=== PATIENT | female | born 1935 | race Caucasian/White ===

== ENCOUNTER → 2018-04-15 12:59 | Outpatient (CLI) | payer MEDICARE ==
[2014-01-30 09:13] VITALS: BMI 30.5
[~2018-04-15 12:59] MED LIST: ASPIRIN325 MG PO; ATENOLOL25 MG NG; ATIVAN1 MG; CATAPRES0.1 MG PO; FEVERFEW; NIFEDIPINE ER60 MG PO; PLAVIX75 MG PO; PREDNISONE5 MG/5 ML PO; [UNRECOGNIZED DRUG - OTHER] PO
== END | disposition home or self-care (01) ==
LOC: D.RAD 12:59
DX: R05 Cough (principal)

== ENCOUNTER 2018-10-10 17:03 | Inpatient (IN) | payer MEDICARE ==
[~2018-10-10] VITALS: Ht 154.9 cm; Wt 69.4 kg
--- NOTE | ~2018-10-10 | HEMODYNAMI ---
PATIENT:KASSIE MARKHAM MEDICAL RECORD: [id number] : 33 [id number] ADMISSION DATE: 10/10/18 Generatedon:10/11/201811:56 Patient name: KASSIE MARKHAM Patient #: [id number] SSN: : Date of study: 10/11/2018 Page: Of Hemodynamic Procedure Report Patient Data Patient Demographics Procedure consent was obtained First Name: KASSIE Gender: Female Last Name: RASHI : 1935 [facility] Initial: MIKHAIL Age: 83 year(s) LIANG Race: Unknown Patient #: [id number] Additional ID: [id number] Contact details Address: [address] [place] [address] State: [place] City: [place] Zip code: [address] Admission Admission Data Admission Date: 10/10/2018 Admission Time: 20:27 Room #: D.2107 Weight (lbs.): 154.32 Weight (kg.): 70 Lab Results Lab Result Date: 10/11/2018 Lab Result Time: 0:00 Biochemistry Name Units Result Min Max BUN mg/dl 27 --(----)-* 7 18 Creatinine mg/dl 1 --(--*-)-- 0.6 1.3 CBC Name Units Result Min Max Hemoglobin g/dl 11.9 *-(----)-- 13.5 17.5 Procedure Procedure Types Cath Procedure Diagnostic Procedure LHC LHC w/Coronaries PCI Procedure Coronary Stent Coronary Stent Initial Peripheral Cath Diagnostic Procedure Customer Servicer Peripheral Procedures Renal Arteriogram Procedure Description Procedure Date Procedure Date: 10/11/2018 Procedure Start Time: 11:27 Procedure End Time: 11:51 Procedure Staff Name Function Gera Mayfield MD Performing Physician Darryl Crook RT Audio Visual Secretary Olivia Miles RN Nurse Barbara Llanes RT Scrub Alex Cheng RT Monitor Procedure Data Cath Procedure Fluoroscopy Diagnostic fluoroscopy Total fluoroscopy Time: 7.3 time: 7.3 min min Diagnostic fluoroscopy Total fluoroscopy dose: 304 dose: 304 mGy mGy Contrast Material Contrast Material Type Amount (ml) Isovue 300 117 Entry Location Entry Primary Successful Side Size Upsize Upsize Entry Closure Succes sful Closure Location (Fr) 1 (Fr) 2 (Fr) Remarks Device Remarks Femoral Right 5 Fr 6 Fr Exoseal artery Short Estimated blood loss: 10 ml Diagnostic catheters Device Type Used For End Catheter Placement MULTIPACK JL 4.0 5Fr Procedure catheter MULTIPACK 3DRC 5Fr Procedure catheter MULTIPACK Pigtail 5 Fr Procedure catheter Procedure Complications No complications Procedure Medications Medication Administration Route Dosage 0.9% NaCl I.V. 100 ml/hr Oxygen etCO2 Nasal cannula 2 l/min Lidocaine 2% added to field 20 Heparin Flush Bag added to field 2 bags (1000units/500ml NS) Versed I.V. 2 mg Fentanyl I.V. 50 mcg Versed I.V. 2 mg Fentanyl I.V. 50 mcg Heparin Bolus I.V. 7000 units Versed I.V. 2 mg Plavix P.O. 75 mg Hemodynamics Rest HGB: 11.9 (g/dl) Heart Rate: 70 (bpm) Pressure Samples Time Site Value (mmHg) Purpose Heart Use Rate(bpm) 11:29 AO 170/65(107) Snapshot 67 11:31 AO 168/66(108) Snapshot 68 11:35 LV 163/-5,14 Snapshot 67 11:35 AO 170/61(105) Pullback 68 11:35 LV 177/-8,21 Pullback 68 11:39 AO 150/52(90) Snapshot 63 11:42 AO 154/60(98) Snapshot 68 11:44 AO 149/57(97) Snapshot 67 Gradients Valve Time Site 1 Site 2 Mean SEP/DFP Peak To Heart Use (mmHg) (sec/min) Peak Rate (mmHg) (bpm) Aortic 11:35 LV AO 12 13 7 68 177/-8,21 170/61(105) Calculations Valve P-P Mean Valve Index Valve Source Name Gradient Area Flow (cm2) Aortic 7 12 7 12 Snapshots Pre Cath Intra NCS Post Cath Vital Signs Time Heart Resp SPO2 etCO2 NIBP (mmHg) Rhythm Pain Sedation Rate (ipm) (%) (mmHg) Status Level (bpm) 11:11:26 74 21 98 30.3 184/92(138) NSR 0 (11) 10(A) , No pain 11:15:36 72 14 99 31.1 175/84(135) NSR 0 (11) 10(A) , No pain 11:19:48 72 13 98 31.1 173/87(131) NSR 0 (11) 10(A) , No pain 11:23:58 70 12 98 30.3 174/88(133) NSR 0 (11) 10(A) , No pain 11:28:08 74 14 97 35.6 169/90(136) NSR 0 (11) 10(A) , No pain 11:32:22 67 14 97 35.6 154/75(122) NSR 0 (11) 9(A) , No pain 11:36:40 71 11 97 34.9 151/70(118) NSR 0 (11) 10(A) , No pain 11:40:54 64 12 97 34.8 153/75(122) NSR 0 (11) 9(A) , No pain 11:45:08 70 12 97 34.1 148/73(113) NSR 0 (11) 9(A) , No pain 11:49:24 65 11 97 37.1 136/69(108) NSR 0 (11) 10(A) , No pain Medications Time Medication Route Dose Verified Delivered Reason Notes Effectiveness by by 11:12:09 0.9% NaCl I.V. 100 Gera Olivia used for ml/hr Chaparro Miles director content marketing 11:12:17 Oxygen etCO2 2 Gera Olivia used for Nasal l/min Chaparro Miles procedure cannula RN 11:12:22 Lidocaine 2% added 20ml Gera Gera for local to vial Chaparro Mayfield MD anesthetic field 11:12:27 Heparin Flush added 2 Gera Gera used for Bag to bags Chaparro Mayfield MD procedure (1000units/500ml field NS) 11:26:43 Versed I.V. 2 mg Gera Olivia for sedation Chaparro Miles RN 11:26:51 Fentanyl I.V. 50 Gera Olivia for sedation mcg Chaparro Miles RN 11:31:11 Versed I.V. 2 mg Gera Olivia for sedation Chaparro Miles RN 11:31:21 Fentanyl I.V. 50 Gera Olivia for sedation mcg Chaparro Miles RN 11:36:58 Versed I.V. 2 mg Gera Olivia for sedation Chaparro Miles RN 11:39:46 Heparin Bolus I.V. 7000 Gera Olivia for verif ied units Chaparro Miles anticoagulation with DrGareth Mayfield 11:51:26 Plavix P.O. 75 mg Gera Olivia for Chaparro Miles antiplatelet RN therapy Procedure Log Time Note 10:50:14 Darryl Crook RT(R) sent for patient. Start room use. 10:56:15 Time tracking: Regular hours (M-F 7:00 - 5:00) 10:56:19 Plan of Care:Hemodynamics will remain stable., Cardiac rhythm will remain stable., Comfort level will be maintained., Respiratory function will remain adequate., Patient/ family verbilizes understanding of procedure., Procedure tolerated without complication., Recovers from procedure without complications.. 11:02:02 Patient received from Med II to [facility] 3 Alert and oriented. Tansferred to table in Supine position. 11:02:03 Warm blankets applied, and henrik hugger turned on for patient comfort. 11:02:04 Correct patient and procedure confirmed by team. 11:02:06 Signed procedure consent form obtained from patient. 11:02:06 ECG and BP/O2 sat monitors applied to patient. 11:10:30 Vital chart was started 11:12:09 0.9% NaCl 100 ml/hr I.V. was administered by Olivia Miles RN; used for procedure; 11:12:17 Oxygen 2 l/min etCO2 Nasal cannula was administered by Olivia Miles RN; used for procedure; 11:12:22 Lidocaine 2% 20ml vial added to field was administered by Gera Mayfield MD; for local anesthetic; 11:12:27 Heparin Flush Bag (1000units/500ml NS) 2 bags added to field was administered by Gera Mayfield MD; used for procedure; 11:17:29 Baseline sample Acquired. 11:17:32 Rhythm: sinus rhythm 11:17:34 Full Disclosure recording started 11:17:41 H&P Date Dictated: 10/10/2018 Within 30 days and on chart.. 11:17:42 Pre-procedure instructions explained to patient. 11:17:42 Pre-op teaching completed and patient verbalized understanding. 11:17:44 Patient NPO since Midnight. 11:17:48 Family in patients room. 11:17:49 Is the patient allergic to Iodine/contrast media? No. 11:17:54 Is patient on blood thinner?Yes 11:18:04 ACC The patient was administered the following blood thiners within the last 24 hours: ACCPlavix 11:18:06 Patient diabetic? No. 11:18:09 Previous problem with sedation/anesthesia? No ? 11:25:00 Snore? Yes 11:25:03 Sleep apnea? No 11:25:04 Deviated septum? No 11:25:05 Opens mouth fully? Yes 11:25:06 Sticks out tongue? Yes 11:25:08 Airway obstruction? No ? 11:25:10 Dentures? No ? 11:25:12 Pre procedure: right dorsailis pedis pulse 1+ Palpable, but thready & weak; easily obliterated 11:25:30 Unable to palpate radial artery. 11:25:34 Patient pain scale 0/10 ?. 11:25:38 IV patent on arrival in left forearm with 0.9% NaCl at [facility]. 11:25:39 Lab results completed and on chart. 11:25:42 Right groin area was prepped with chlora-prep and draped in sterile fashion 11:25:43 Alarms reviewed by R. N. 11:25:44 Sharps counted by scrub and verified by R.N. 11:25:45 --------ALL STOP TIME OUT------ 11:25:45 Final Timeout: patient, procedure, and site verified with staff and physician. All members of the team are in agreement. 11:25:48 Right groin site verified by team. 11:25:52 Fire Safety Assessment: A--An alcohol-based skin anteseptic being used preoperatively., C--Open oxygen or nitrous oxide is being used., D--An ESU, laser, or fiber-optic light is being used. 11:25:55 Physical assessment completed. ASA score P 2 - A patient with mild systemic disease as per Gera Mayfield MD. 11:25:58 Sedation plan: IV Moderate Sedation Medication:Versed, Fentanyl 11::43 Versed 2 mg I.V. was administered by Olivia Miles RN; for sedation; 11:26:51 Fentanyl 50 mcg I.V. was administered by Olivia Miles RN; for sedation; 11:27:32 Use device set Femoral Dx 11:27:34 ACIST Manifold (60364) opened to sterile field. 11:27:35 ACIST Hand Control (81236) opened to sterile field. 11:27:36 Tegaderm 4 x 4 (1626W) opened to sterile field. 11:27:37 ACIST Syringe (64238) opened to sterile field. 11:27:37 Bag Decanter (2002S) opened to sterile field. 11:27:38 Medline Cath Pack ([id number]) opened to sterile field. 11:27:38 DIAGNOSTIC WIRE .035 260cm J wire (538923) opened to sterile field. 11:27:39 DIAGNOSTIC Multipack 5Fr catheter set (AP9120) opened to sterile field. 11:27:40 SHEATH 5FR [place] (QDR440) opened to sterile field. 11:27:44 Procedure started. 11:27:47 Local anesthetic to right femoral artery with Lidocaine 2% by Gera Mayfield MD.INITIAL ACCESS ONLY 11:28:45 A 5 Fr sheath was inserted into the Right Femoral artery 11:28:50 A MULTIPACK JL 4.0 5Fr catheter was advanced over the wire and used for Procedure. 11:29:23 LCA angiography performed. 11:30:17 Catheter exchanged over wire. 11:30:24 A MULTIPACK 3DRC 5Fr catheter was advanced over the wire and used for Procedure. 11:31:11 Versed 2 mg I.V. was administered by Olivia Miles RN; for sedation; 11:31:21 Fentanyl 50 mcg I.V. was administered by Olivia Miles RN; for sedation; 11:31:36 RCA angiography performed. 11:33:15 Left renal angiography performed. 11:33:40 Right renal angiography performed. 11:33:44 Catheter exchanged over wire. 11:34:02 Procedure type changed to Cath procedure, Diagnostic procedure, LHC, LHC w/Coronaries, PCI procedure, Coronary Stent, Coronary Stent Initial, Peripheral Cath Diagnostic Procedure, Customer Servicer Peripheral Procedures, Renal Arteriogram 11:34:15 Patient Weight : 154.32 lbs 11:34:41 Lab Result : BUN 27 mg/dl 11:34:41 Lab Result : Hemoglobin 11.9 g/dl 11:34:41 Lab Result : Creatinine 1 mg/dl 11:34:50 A MULTIPACK Pigtail 5 Fr catheter was advanced over the wire and used for Procedure. 11:35:17 LV angiography performed. 11:35:19 LV gram done using CHRISTY 11:35:34 EF : 45 % 11:35:49 LV hemodynamics recorded. 11:35:54 Injector settings: Ml/sec: 10, Volume: 20, 11:35:56 Catheter exchanged over wire. 11:36:25 Use device set MAYFIELD PCI 11:36:26 SHEATH 6FR [place] (YLH067) opened to sterile field. 11:36:30 BMW 300cm [place] 2 J wire ([id number]) opened to sterile field. 11:36:31 INFLATOR Merit BasixCompak (XF8957) opened to sterile field. 11:36:32 TUBING High Pressure Extension Tubing ([place]) (RZ5283N) opened to sterile field. 11:36:58 Versed 2 mg I.V. was administered by Olivia Miles RN; for sedation; 11:39:05 GUIDE 6FR XBLAD 3.5 catheter ([id number]) opened to sterile field. 11:39:17 Sheath upsized to a 6 Fr Short. 11:39:36 6 Fr XBLAD 3.5 guide catheter was inserted over the wire 11:39:46 Heparin Bolus 7000 units I.V. was administered by Olivia Miles RN; for anticoagulation; verified with Dr. Mayfield 11:40:01 BMW wire advanced. 11:40:46 Wire advanced across lesion. 11:44:52 Inflate balloon Inflation number: 1 A EMERGE OTW 2.0 x 15 balloon ([id number]) was prepped and advanced across the Mid CX, then inflated to 10 MICHAEL for 0:10 (min:sec). 11:47:33 Balloon removed over the wire. 11:48:25 Place stent Inflation Number: 2 A DAMIAN OTW 2.5 x 12 stent ([id number]) was prepped and advanced across the Mid CX. The stent was deployed at 14 MICHAEL for 0:10 (min:sec). 11:48:45 Stent catheter was removed intact over wire. 11:48:46 Wire removed. 11:48:46 Guide catheter removed. 11:48:56 EXOSEAL 6Fr (EX600) opened to sterile field. 11:49:06 Sheath removed intact; hemostasis achieved with Exoseal to the Right Femoral artery. 11:49:08 Procedure ended.(Physican Out) 11:50:11 Fluoroscopy time 07.30 minutes. 11:50:15 Flurop Dose total: 304 11:50:15 Fluoroscopy dose: 304 mGy 11:50:20 Contrast amount:Isovue 300 117ml. 11:50:22 Sharps counted by scrub and verified by R.N. 11:50:24 Insertion/operative site no bleeding no hematoma. 11:50:26 Post-op/insertion site Right Femoral artery dressed using a 4 x 4 and Tegaderm. 11:50:27 Post Procedure Pulses reassessed and unchanged 11:50:30 Post-procedure physical assessment completed. ASA score P 2 - A patient with mild systemic disease as per Gera Mayfield MD. 11:50:32 Post procedure rhythm: unchanged. 11:50:35 Estimated blood loss: 10 ml 11:50:37 Post procedure instruction explained to patient.Patient verbalizes understanding. 11:50:38 Patient needs reinforcement of post procedure teaching. 11:50:48 Procedure and supply charges have been captured, reviewed, submitted and are correct. 11:50:51 Procedure Complication : No complications 11:51:26 Plavix 75 mg P.O. was administered by Olivia Miles RN; for antiplatelet therapy; 11:51:49 Vital chart was stopped 11:51:49 See physician's report for complete and final results. 11:51:51 Report given to [facility]. 11:51:54 Patient transfered to [facility] with Bed. 11:51:55 Procedure ended. 11:51:55 Full Disclosure recording stopped 11:55:51 End room use (Document Last) Intervention Summary Intervention Notes Time ActionType Lesion and Equipment Action# Pressure Duration Attributes Used 11:44:52 Inflate Mid CX EMERGE OTW 1 10 00:10 balloon 2.0 x 15 balloon ([id number]) 11:48:25 Place stent Mid CX DAMIAN OTW 2.5 2 14 00:10 x 12 stent ([id number]) Device Usage Item Name Manufacture Quantity Catalog Number Hospital Part Current Min imal Lot# / Charge Number Stock Stock Serial# Code ACIST Acist 1 06236 341305 997799 363184 5 Manifold Medical (34000) Systems Inc ACIST Hand Acist 1 67813 092034 530244 934054 5 Control Medical (73116) Systems Inc Tegaderm 4 x 3M 1 1626W 389552 111502 060286 5 4 (1626W) ACIST Syringe Acist 1 45739 707968 037984 802268 20 (83316) Medical Systems Inc Bag Decanter Microtek 1 2001S 099255 84631 703353 5 (2001S) Medical Inc. Medline Cath Medline 1 [id number] 535215 91393 295761 5 Pack ([id number]) DIAGNOSTIC [place] 1 194036 064032 680405 816905 30 WIRE .035 260cm J wire (680298) DIAGNOSTIC Cardinal 1 MI6171 165490 46133 880550 30 Multipack 5Fr Health catheter set (KL3288) SHEATH 5FR Terumo 1 TXI797 985462 299982 857757 5 [place] (TWX419) MULTIPACK JL Cardinal 1 975071 5 4.0 5Fr Health catheter MULTIPACK Cardinal 1 922363 5 3DRC 5Fr Health catheter MULTIPACK Cardinal 1 671968 5 Pigtail 5 Fr Health catheter SHEATH 6FR Terumo 1 EKE743 631209 541272 031027 40 [place] (UJQ442) BMW 300cm [place] 1 [id number] 084933 496096 430855 5 [place] 2 J Vascular wire (3249102X) INFLATOR Merit 1 LH8035 641422 835751 053129 15 Merit Medical BasixCompak (QR2522) TUBING High Merit 1 [id number] 737453 74398 490613 10 Pressure Medical Extension Tubing ([place]) (CY8833N) GUIDE 6FR Cardinal 1 [id number] 168008 404182 256249 10 XBLAD 3.5 Health catheter (18694369) EMERGE OTW Lander 1 [id number] 531233 977922 075646 5 [id number] 2.0 x 15 Scientific balloon ([id number]) DAMIAN OTW 2.5 Medtronic 1 [id number] 607822 68932 732253 5 [id number] x 12 stent ([id number]) EXOSEAL 6Fr Cardinal 1 EX600 438240 049390 782281 10 (EX600) Health Signature Audit [place] Stage Time Signature Unsigned Intra-Procedure 10/11/2018 Alex Cheng 11:56:08 AM RT(R) Signatures Monitor : Alex Cheng RT Signature : Date : Time : [address] [address]
--- NOTE | ~2018-10-10 | HEMODYNAMI ---
PATIENT:KASSIE MARKHAM MEDICAL RECORD: [id number] : 33 [facility] AD[facility] DATE: 10/11/18 Generatedon:10/12/201810:37 Patient name: KASSIE MARKHAM Patient #: [id number] SSN: : Date of study: 10/12/2018 Page: Of Hemodynamic Procedure Report Patient Data Patient Demographics Procedure consent was obtained First Name: KASSIE Gender: Female Last Name: RASHI : 1935 [facility] Initial: MIKHAIL Age: 83 year(s) LIANG Race: Unknown Patient #: [id number] Additional ID: [id number] Contact details [address]: [address] [place] [address] State: [place] City: [place] Zip code: [address] Admission Admission Data Admission Date: 10/11/2018 Admission Time: 14:00 Admit Source: Other Room #: D[facility] Weight (lbs.): 154.32 Weight (kg.): 70 Lab Results Lab Result Date: 10/11/2018 Lab Result Time: 0:00 Biochemistry Name Units Result Min Max BUN mg/dl 27 --(----)-* 7 18 Creatinine mg/dl 1 --(--*-)-- 0.6 1.3 CBC Name Units Result Min Max Hemoglobin g/dl 11.9 *-(----)-- 13.5 17.5 Procedure Procedure Types Cath Procedure PCI Procedure Coronary Stent Coronary Stent Initial x2 Procedure Description Procedure Date Procedure Date: 10/12/2018 Procedure Start Time: 10:14 Procedure End Time: 10:30 Procedure Staff Name Function Benitez Ambrosio MD Performing Physician Alex Cheng RT Monitor Olivia Miles RN Nurse Darryl Crook RT Scrub Procedure Data Cath Procedure Fluoroscopy Diagnostic fluoroscopy Total fluoroscopy Time: 3.7 time: 3.7 min min Diagnostic fluoroscopy Total fluoroscopy dose: 89 dose: 89 mGy mGy Contrast Material Contrast Material Type Amount (ml) Isovue 300 80 Entry Location Entry Primary Successful Side Size Upsize Upsize Entry Closure Succes sful Closure Location (Fr) 1 (Fr) 2 (Fr) Remarks Device Remarks Femoral Left 6 Fr Exoseal artery Short Estimated blood loss: 10 ml Procedure Complications No complications Procedure Medications Medication Administration Route Dosage 0.9% NaCl I.V. 100 ml/hr Oxygen etCO2 Nasal cannula 2 l/min Lidocaine 2% added to field 20 Heparin Flush Bag added to field 2 bags (1000units/500ml NS) Heparin Bolus I.V. 4000 units Versed I.V. 2 mg Fentanyl I.V. 100 mcg Versed I.V. 2 mg Fentanyl I.V. 50 mcg Versed I.V. 2 mg Fentanyl I.V. 50 mcg Hemodynamics Rest HGB: 11.9 (g/dl) Heart Rate: 95 (bpm) Snapshots Pre Cath Intra NCS Post Cath Vital Signs Time Heart Resp SPO2 etCO2 NIBP (mmHg) Rhythm Pain Sedation Rate (ipm) (%) (mmHg) Status Level (bpm) 9:48:59 97 20 98 28 185/89(125) NSR 0 (11) 10(A) , No pain 9:58:20 86 12 98 27.2 185/94(131) NSR 0 (11) 10(A) , No pain 10:02:48 88 32 99 27.9 171/88(128) NSR 0 (11) 10(A) , No pain 10:07:19 81 13 99 21.1 174/77(130) NSR 0 (11) 10(A) , No pain 10:11:43 80 13 99 27.9 170/83(122) NSR 0 (11) 10(A) , No pain 10:16:05 80 19 98 29.4 163/81(121) NSR 0 (11) 10(A) , No pain 10:20:25 83 15 98 28.7 153/79(112) NSR 0 (11) 10(A) , No pain 10:24:49 78 19 99 31.7 159/76(123) NSR 0 (11) 10(A) , No pain 10:29:48 83 32 95 21.1 Measuring NSR 0 (11) 10(A) , No pain 10:30:09 84 19 95 19.6 176/95(129) NSR 0 (11) 10(A) , No pain Medications Time Medication Route Dose Verified Delivered Reason Notes Effectiveness by by 10:02:30 0.9% NaCl I.V. 100 Benitez Olivia used for ml/hr Hebert Miles pharmacoepidemiologist 10:02:37 Oxygen etCO2 2 Benitez Olivia used for Nasal l/min Hebert Miles procedure cannula RN 10:02:41 Lidocaine 2% added 20ml Benitez Benitez for local to vial Hebert Ambrosio MD anesthetic field 10:02:46 Heparin Flush added 2 Benitez Benitez used for Bag to bags Hebert Ambrosio MD procedure (1000units/500ml field NS) 10:14:35 Versed I.V. 2 mg Benitez Olivia for sedation Hebert Miles RN 10:14:51 Fentanyl I.V. 100 Benitez Olivia for sedation mcg Hebert Miles RN 10:18:08 Heparin Bolus I.V. 4000 Benitez Olivia for verif ied units Hebert Miles anticoagulation with Dr. PERNELL Ambrosio 10:20:44 Versed I.V. 2 mg Benitez Olivia for sedation Hebert Miles RN 10:20:53 Fentanyl I.V. 50 Benitez Olivia for sedation mcg Hebert Miles RN 10:25:46 Versed I.V. 2 mg Benitez Olivia for sedation Hebert Miles RN 10:25:51 Fentanyl I.V. 50 Benitez Olivia for sedation mcg Hebert Miles dragger Log Time Note 9:39:30 Admit Source: Other 9:39:55 Patient Weight : 154.32 lbs 9:40:01 Diagnostic Cath status Urgent 9:40:04 Alex Cheng RT(R) sent for patient. Start room use. 9:40:06 Time tracking: Regular hours (M-F 7:00 - 5:00) 9:40:11 Plan of Care:Hemodynamics will remain stable., Cardiac rhythm will remain stable., Comfort level will be maintained., Respiratory function will remain adequate., Patient/ family verbilizes understanding of procedure., Procedure tolerated without complication., Recovers from procedure without complications.. 9:40:18 Patient received from CVICU to CCL 3 Alert and oriented. Tansferred to table in Supine position. 9:40:19 Warm blankets applied, and henrik hugger turned on for patient comfort. 9:40:20 Correct patient and procedure confirmed by team. 9:40:21 Signed procedure consent form obtained from patient. 9:40:22 ECG and BP/O2 sat monitors applied to patient. 9:46:13 Vital chart was started 9:46:14 Baseline sample Acquired. 9:46:18 Rhythm: sinus rhythm 9:46:19 Full Disclosure recording started 9:50:44 H&P Date Dictated: 10/11/2018 Within 30 days and on chart.. 9:50:45 Pre-procedure instructions explained to patient. 9:50:45 Pre-op teaching completed and patient verbalized understanding. 9:50:59 Family in patients room. 9:51:01 Patient NPO since Midnight. 9:51:05 Is the patient allergic to Iodine/contrast media? Yes. 9:51:12 Was the patient premedicated? Yes 9:51:13 Is patient on blood thinner?Yes 9:51:16 ACC The patient was administered the following blood thiners within the last 24 hours: ACCPlavix 9:52:00 Patient diabetic? No. 9:52:07 Previous problem with sedation/anesthesia? No ? 9:52:08 Snore? Yes 9:52:09 Sleep apnea? No 9:52:11 Deviated septum? No 9:52:11 Opens mouth fully? Yes 9:52:12 Sticks out tongue? Yes 9:52:14 Airway obstruction? No ? 9:52:22 Dentures? No ? 9:52:25 Pre procedure: left dorsailis pedis pulse 1+ Palpable, but thready & weak; easily obliterated 9:52:28 Modified Ilia's test Ulnar < 7 seconds 9:52:31 Patient pain scale 0/10 ?. 9:59:49 IV left wrist D/C'd due to infiltration. 9:59:58 IV started by Olivia Miles RN inleft forearm with a 24 gauge IV catheter with 0.9% NaCl at KVO. 10:02:30 0.9% NaCl 100 ml/hr I.V. was administered by Olivia Miles RN; used for procedure; 10:02:37 Oxygen 2 l/min etCO2 Nasal cannula was administered by Olivia Miles RN; used for procedure; 10:02:41 Lidocaine 2% 20ml vial added to field was administered by Benitez Ambrosio MD; for local anesthetic; 10:02:46 Heparin Flush Bag (1000units/500ml NS) 2 bags added to field was administered by Benitez Ambrosio MD; used for procedure; 10:05:27 Lab results completed and on chart. 10:05:34 Right Radial & Left Groin area was prepped with chlora-prep and draped in sterile fashion 10:05:36 Alarms reviewed by R. N. 10:05:37 Sharps counted by scrub and verified by R.N. 10:05:45 Use device set Radial Dx or PCI 10:05:54 ACIST Syringe (21058) opened to sterile field. 10:05:55 ACIST Hand Control (41098) opened to sterile field. 10:05:56 ACIST Manifold (22118) opened to sterile field. 10:05:56 Tegaderm 4 x 4 (1626W) opened to sterile field. 10:05:59 Medline Cath Pack ([id number]) opened to sterile field. 10:06:00 Bag Decanter (2002S) opened to sterile field. 10:06:06 IV CATHETER 24g opened to sterile field. 10:06:06 DIAGNOSTIC WIRE .035 260cm J wire (012446) opened to sterile field. 10:06:07 MBrace Wrist Support ([id number]) opened to sterile field. 10:06:15 Use device set TAUTH PCI 10:06:21 INFLATOR Merit BasixCompak (LT7070) opened to sterile field. 10:06:26 CHOICE PT Extra Support 182cm wire ([id number]) opened to sterile field. 10:11:25 SHEATH 6FR Schwertner (DOW027) opened to sterile field. 10:11:48 GUIDE 6FR XBLAD 3.5 catheter ([id number]) opened to sterile field. 10:13:24 GUIDE 6FR ART 3.5 SH catheter ([id number]) opened to sterile field. 10:13:39 Physician opted for Femoral approach. 10:13:47 --------ALL STOP TIME OUT------ 10:13:48 Final Timeout: patient, procedure, and site verified with staff and physician. All members of the team are in agreement. 10:13:52 Right groin site verified by team. 10:13:54 Physical assessment completed. ASA score P 2 - A patient with mild systemic disease as per Beintez Ambrosio MD. 10:13:58 Sedation plan: IV Moderate Sedation Medication:Versed, Fentanyl 10:14:01 Fire Safety Assessment: A--An alcohol-based skin anteseptic being used preoperatively., C--Open oxygen or nitrous oxide is being used., D--An ESU, laser, or fiber-optic light is being used. 10:14:20 Procedure started. 10:14:30 Local anesthetic to left femerol artery with Lidocaine 2% by Benitez Ambrosio MD.INITIAL ACCESS ONLY 10:14:35 Versed 2 mg I.V. was administered by Olivia Miles RN; for sedation; 10:14:51 Fentanyl 100 mcg I.V. was administered by Olivia Miles RN; for sedation; 10:16:13 A 6 Fr Short sheath was inserted into the Left Femoral artery 10:16:34 6 Fr ART 3.5 SH guide catheter was inserted over the wire 10:17:51 Guide Catheter removed. unable to cannulate vessel. 10:18:01 GUIDE 6FR HS I SH catheter ([id number]) opened to sterile field. 10:18:08 Heparin Bolus 4000 units I.V. was administered by Olivia Miles RN; for anticoagulation; verified with Dr. Ambrosio 10:18:15 6 Fr HS 1 SH guide catheter was inserted over the wire 10:18:37 CPTXS wire advanced. 10:19:12 Wire advanced across lesion. 10:19:55 Place stent Inflation Number: 1 A DAMIAN RX 3.0 x 38 stent ([id number]) was prepped and advanced across the Mid RCA. The stent was deployed at 15 MICHAEL for 0:10 (min:sec). 10:20:34 Stent catheter was removed intact over wire. 10:20:44 Versed 2 mg I.V. was administered by Olivia Miles RN; for sedation; 10:20:53 Fentanyl 50 mcg I.V. was administered by Olivia Miles RN; for sedation; 10:21:08 Place stent Inflation Number: 1 A DAMIAN RX 3.5 x 18 stent ([id number]) was prepped and advanced across the Prox RCA. The stent was deployed at 17 MICHAEL for 0:10 (min:sec). 10::42 Stent catheter was removed intact over wire. 10::43 Wire removed. 10::43 Guide catheter removed. 10:21:50 6 Fr XBLAD 3.5 guide catheter was inserted over the wire 10:23:49 CHOICE PT Extra Support J 300cm guide wire ([id number]) opened to sterile field. 10:23:57 CPTXS 300 wire advanced. 10:24:40 Wire advanced across lesion. 10::46 Versed 2 mg I.V. was administered by Olivia Miles RN; for sedation; 10::51 Fentanyl 50 mcg I.V. was administered by Olivia Miles RN; for sedation; 10::08 Place stent Inflation Number: 1 A DAMIAN RX 2.0 x 8 stent ([id number]) was prepped and advanced across the 1st Diag. The stent was deployed at 13 MICHAEL for 0:10 (min:sec). 10:26:11 Stent catheter was removed intact over wire. 10:26:12 Wire removed. 10:26:13 Guide catheter removed. 10::42 EXOSEAL 6Fr (EX600) opened to sterile field. 10:26:52 Sheath removed intact; hemostasis achieved with Exoseal to the Left Femoral artery. 10::56 Procedure ended.(Physican Out) 10:28:21 Fluoroscopy time 03.70 minutes. 10:28:26 Fluoroscopy dose: 89 mGy 10:28:26 Flurop Dose total: 89 10:28:31 Contrast amount:Isovue 300 80ml. 10:28:32 Sharps counted by scrub and verified by R.N. 10:28:35 Insertion/operative site no bleeding no hematoma. 10:28:38 Post-op/insertion site Left Femoral artery dressed using a 4 x 4 and Tegaderm. 10:28:39 Post Procedure Pulses reassessed and unchanged 10:28:41 Post-procedure physical assessment completed. ASA score P 2 - A patient with mild systemic disease as per Benitez Ambrosio MD. 10:28:44 Post procedure rhythm: unchanged. 10::46 Estimated blood loss: 10 ml 10:28:48 Post procedure instruction explained to patient.Patient verbalizes understanding. 10:28:49 Patient needs reinforcement of post procedure teaching. 10:29:07 Procedure type changed to Cath procedure, PCI procedure, Coronary Stent, Coronary Stent Initial x2 10:29:08 Procedure and supply charges have been captured, reviewed, submitted and are correct. 10:29:10 Procedure Complication : No complications 10:29:56 Vital chart was stopped 10:29:56 See physician's report for complete and final results. 10:29:58 Report given to CVICU. 10:30:01 Patient transfered to CVICU with Bed. 10:30:03 Procedure ended. 10:30:03 Full Disclosure recording stopped 10:34:54 End room use (Document Last) Intervention Summary Intervention Notes Time ActionType Lesion and Equipment Used Action# Pressure Duration Attributes 10:19:55 Place stent Mid RCA DAMIAN RX 3.0 x 1 15 00:10 38 stent ([id number]) 10:21:08 Place stent Prox RCA DAMIAN RX 3.5 x 1 17 00:10 18 stent ([id number]) 10:26:08 Place stent 1st Diag DAMIAN RX 2.0 x 1 13 00:10 8 stent ([id number]) Device Usage Item Name Manufacture Quantity Catalog Number Hospital Part Current M inimal Lot# / Charge Number Stock Stock Serial# Code ACIST Syringe Acist 1 28522 490257 137560 899729 2 0 (74106) Medical Systems Inc ACIST Hand Acist 1 81545 241224 708227 368532 5 Control Medical (59501) Systems Inc ACIST Manifold Acist 1 79969 402396 387140 193590 5 (55788) Medical Systems Inc Tegaderm 4 x 4 3M 1 1626W 464957 264852 047229 5 (1626W) Medline Cath Medline 1 [id number] 407988 41268 843111 5 Pack ([id number]) Bag Decanter Microtek 1 2001S 096266 27677 698170 5 (2001S) Medical Inc. IV CATHETER B. [place] 1 4443173-80 778508 135381 530916 [address] [place] 1 237675 747350 233487 194307 3 0 WIRE .035 260cm J wire (685639) MBrace Wrist Advanced 1 140-0250-00 423145 33994 721018 5 Support Vascular (102139689) Dynamics INFLATOR Merit Merit 1 BW2235 905175 408595 789055 1 5 BasixCompak Medical (UL2431) CHOICE PT [place] 1 [id number] 765868 080331 633709 5 Extra Support Scientific 182cm wire (6563960T0) SHEATH 6FR Terumo 1 VSF330 889917 636046 950667 4 0 Schwertner (IPQ071) GUIDE 6FR Cardinal 1 89807931 140727 490137 315414 1 0 XBLAD 3.5 Health catheter (31998075) GUIDE 6FR ART [place] 1 [id number] 150676 603816 915615 0 3.5 SH Scientific catheter (691088932) GUIDE 6FR HS I Medtronic 1 [id number] 935332 51340 133802 1 SH catheter ([id number]) DAMIAN RX 3.0 x Medtronic 1 [id number] 124531 7579868 009295 5 [id number] 38 stent ([id number]) DAMIAN RX 3.5 x Medtronic 1 [id number] 782294 9390905 656006 5 [id number] 18 stent ([id number]) CHOICE PT [place] 1 [id number] 834405 434238 371559 5 Extra Support Scientific J 300cm guide wire ([id number]) DAMIAN RX 2.0 x Medtronic 1 [id number] 934961 1980542 599032 5 [id number] 8 stent ([id number]) EXOSEAL 6Fr Cardinal 1 EX600 206785 292033 140908 1 0 (EX600) Health Signature Audit [place] Stage Time Signature Unsigned Intra-Procedure 10/12/2018 Alex Cheng 10:37:19 AM RT(R) Signatures Monitor : Alex Cheng RT Signature : Date : Time : [facility] [address] [place] [address]
[~2018-10-10 17:03] MED LIST changes: -ATIVAN1 MG; +ATIVAN1 MG PO
[2018-10-10] MEDS ORDERED: HYDROCHLOROTHIA25 MG PO (17:22)
[2018-10-10] MEDS ORDERED: COZAAR100 MG PO (17:22)
[2018-10-10] MEDS ORDERED: DILTIAZEM (17:22)
[2018-10-10 18:01] LABS: BASOPHILS 0.2 % (0-2); EOSINOPHILS 2.6 % (0-7); HEMATOCRIT 35.3 % (36.0-48.0); HEMOGLOBIN 11.9 g/dL (12-16); LYMPHOCYTES 22.6 % (15-50); MCH 30.4 pg (26.0-34.0); MCHC 33.7 g/dL (31.0-37.0); MCV 90.1 fL (80.0-100.0); MEAN PLATELET VOLUME 10.1 fL (7.4-10.4); MONOCYTES 7.7 % (2-11); NEUTROPHILS 66.9 % (40-80); PLATELET COUNT 211 10x3/uL (130-400); RBC 3.92 10x6/uL (4.00-5.40); RDW 12.3 % (11.5-14.5); WBC 4.7 10x3/uL (4.8-10.8)
[2018-10-10 18:15] LABS: ALBUMIN 3.7 g/dL (3.4-5.0); ALKALINE PHOSPHATASE 95 U/L (46-116); ALT (SGPT) 18 U/L (10-68); BILIRUBIN - TOTAL 0.32 mg/dL (0.2-1.3); CALC OSMOLALITY 290 mosm/kg (275-300); CARBON DIOXIDE 28.8 mmol/L (21.0-32.0); CHLORIDE - SERUM 105 mmol/L (98-107); CREATININE - SERUM 1.2 mg/dL (0.6-1.3); GLUCOSE 102 mg/dL (74-106); POTASSIUM - SERUM 3.4 mmol/L (3.5-5.1); PROTEIN - SERUM 7.2 g/dL (6.4-8.2); SODIUM 143 mmol/L (136-145); UREA NITROGEN 29 mg/dL (7-18); eGFR NON AFRICAN AMERICAN 45 mL/min (90-120)
[2018-10-10 18:30] LABS: CKMB 1.3 U/L (0.0-3.6); CREATINE KINASE 49 UL (21-215)
[2018-10-10 18:35] LABS: TROPONIN-I 0.086 ng/mL (0.000-0.060)
[2018-10-10 19:20] LABS: APTT 28.8 SECONDS (22.8-39.4); INR 0.99 (0.85-1.17); PROTIME 12.6 SECONDS (11.6-15.0)
--- NOTE | 2018-10-10 19:32 | NUR ---
PT LAYING IN BED RESPIRATIONS ARE EVEN AND UNLABORED. NO DISTRESS NOTED AT THIS TIME. PT FAMILY MEMBER AT BEDSIDE. VSS. PT AMBULATED TO RESTROOM INDEPENDENTLY WITHOUT ASSISTANCE. WILL CONTINUE TO MONITOR PATIENT.
[2018-10-10 20:41] VITALS: BP 169/79
--- NOTE | 2018-10-10 21:15 | NUR ---
RECEIVED FROM ER, A&O X4, IV-L.HAND-SL, [id number], BED IS LOW, SRX2, CALL LIGHT IN REACH, WILL CONTINUE PLAN OF CARE
[2018-10-10 21:41] LABS: ANION GAP 14.4 mmol/L (8-16); CARBON DIOXIDE 27.1 mmol/L (21.0-32.0); CREATININE - SERUM 1.1 mg/dL (0.6-1.3); POTASSIUM - SERUM 3.5 mmol/L (3.5-5.1)
[2018-10-10] MEDS ORDERED: NORVASC5 MG PO (23:37)
[2018-10-11] VITALS (11 sets, daily range): BP systolic 142–181; BP diastolic 57–89; Ht 154.9 cm; Wt 69.4 kg
--- NOTE | 2018-10-11 04:46 | NUR ---
ADMISSION ASSESSMENT COMPLETED. PT RESTING WITH NO DISTRESS. SEE NOTE. MONITOR AND CPOC.
[2018-10-11 06:08] LABS: BASOPHILS 0.4 % (0-2); EOSINOPHILS 4.4 % (0-7); HEMOGLOBIN 11.9 g/dL (12-16); LYMPHOCYTES 23.2 % (15-50); MCH 30.4 pg (26.0-34.0); MCV 89.3 fL (80.0-100.0); MEAN PLATELET VOLUME 10.4 fL (7.4-10.4); MONOCYTES 8.5 % (2-11); NEUTROPHILS 63.5 % (40-80); PLATELET COUNT 214 10x3/uL (130-400); RBC 3.92 10x6/uL (4.00-5.40); RDW 12.4 % (11.5-14.5); WBC 5.4 10x3/uL (4.8-10.8)
[2018-10-11 06:41] LABS: CALC OSMOLALITY 285 mosm/kg (275-300); CARBON DIOXIDE 24.2 mmol/L (21.0-32.0); CHLORIDE - SERUM 106 mmol/L (98-107); CKMB 2.1 U/L (0.0-3.6); CREATINE KINASE 50 UL (21-215); GLUCOSE 91 mg/dL (74-106); POTASSIUM - SERUM 3.8 mmol/L (3.5-5.1); SODIUM 141 mmol/L (136-145); UREA NITROGEN 27 mg/dL (7-18); eGFR NON AFRICAN AMERICAN 56 mL/min (90-120)
[2018-10-11 07:08] LABS: TROPONIN-I 0.657 ng/mL (0.000-0.060)
--- NOTE | 2018-10-11 07:50 | NUR ---
REPORT RECEIVED. WILL CONTINUE WITH POC. PT CURRENTLY LYING SUPINE. CALL LIGHT W/I REACH. PT IS AAO AND UP AD REUBEN. RR EVEN AND UNLABORED ON RA. L.HAND PIV IS SALINE LOCKED. PT IS NPO FOR CATH TODAY. ORDERED THAT SOLU MEDROL AND PEPCID BE ADMINISTERED NOW R/T IODINE ALLERGY. ADMINISTERED BOTH MEDICATONS VIA PIV. PT DENIES ANY FURTHER NEEDS. WILL CTM.
--- NOTE | 2018-10-11 10:50 | MORECARE ---
CASE MANAGEMENT DISCHARGE SUMMARY PATIENT: KASSIE MARKHAM UNIT: [id number] ADM DATE: 10/10/18 AGE: 83 : [birth year] SEX: F ROOM/BED: D.2107 AUTHOR: SHERON BOSCH PHYSICIAN: REFERRING PHYSICIAN: DARCI RIVERO MD DATE OF SERVICE: 10/11/18 Discharge Plan Patient Name: KASSIE MARKHAM Facility: [facility]:[place] : 1935 Planned Disposition: Anticipated Discharge Date: Discharge Date: Expected LOS: Initial Reviewer: [email or web address] Initial Review Date: 10/10/2018 Generated: 10/11/18 11:50 am Coverage Notice Reviewer: [email or web address] - Shabana Robertson Notice Issued Date-Time: 10/11/2018 10:16 Notice Type: Medicare Outpatient Observation Notice Notice Delivered To: Patient Relationship to Patient: Self Videotape Sales Representative Name: Delivery Method: HAND - Hand Delivered Julieth Days: Prior Verbal Notification: Recipient Understood Notice: Yes Recipient Signature: Yes Med Rec Note Co-signed by Attending: Coverage Notice Comment: SPOKE WITH PATIENT AND HER SPOUSE, TJ, AFTER VERBAL CONSENT WAS OBTAINED. Patient Name: KASSIE MARKHAM Page [phone] at 1050 All edits/amendments must be made on the electronic document DICTATION DATE: 10/11/18 1049 BOILER HOUSE INSPECTOR: KIM 10/11/18 1049 RPT#: [id number] [place] DATE: STATUS: ADM IN [facility] [address] [place] [address] END OF REPORT
--- NOTE | 2018-10-11 12:14 | NUR ---
PT RETURNED FROM COMMERCIAL LINES ASSISTANT. PT IS AAO. PERIPHERAL PULSES ARE EVEN AND BILATERAL. VSS AND WNL. WILL CTM.
--- NOTE | 2018-10-11 15:27 | NUR ---
1354 PT HAD BRADYCARDIAC EPISODES. RAPID CALLED AND THEN PT STOPPED BREATHING. CODE BLUE CALLED. SEE CODE BLUE SHEET.
--- NOTE | 2018-10-11 16:43 | NUR ---
PT TRANSFERED TO CV01 VIA BED ACCOMPANIED BY FAMILY AND HOSPITAL STAFF. PT IS AAO AND BEDFAST. FEM STOP IN PLACE AND HOLDING @60PSI. NS INFUSING @50ML/HR VIA L.FOR PIV. RR EVEN AND UNLABORED ON 2L 02.
--- NOTE | 2018-10-11 16:45 | NUR ---
PT ARRIVED TO UNIT VIA BED. HAS FEMORAL STOP ON RIGHT GROING AT 50CC OF AIR. PEDAL PULSES PALPABLE BILATERALLY. VELASCO PIV ON LEFT HAND NS CONNECTED BUT NOT INFUSING AT THIS TIME. PT AA&0X4. RATES PAIN 2/10 AT RIGHT GROIN SITE. WAS GIVEN TYLENOL BEFORE TRANSPORTED TO THIS UNIT. SPOUSE AT BEDSIDE. BP 163/69, HR 67, RR 14, O2SAT 94% ON ROOM AIR. DENIES FURTHER NEEDS AT THIS TIME. WILL CONTINUE TO MONITOR.
--- NOTE | 2018-10-11 18:00 | NUR ---
FEM STOP TAKEN OFF AT THIS TIME. NO BLEDDING NOTED. SPOUSE AND DAUGHTER AT BEDSIDE. WILL CONTINUE TO MONITOR.
--- NOTE | 2018-10-11 19:15 | NUR ---
REC'D TO CARE, BLACK AND WHITE PRINTER OPERATOR PER FLOWSHEET. DAUGHTER AT BS. PT HAD SANDWICH TRAY. R GROIN SITE C/D/I, NO HEMATOMA OR BLEEDING. PT DENIES CP OR SOB. ALARMS ON AND C/L IN REACH.
--- NOTE | 2018-10-11 20:00 | NUR ---
DR. MORRIS NOTIFIED OF PT DAUGHTER CONCERN WITH TAKING LOPRESSOR TONIGHT - HR IS 60-70 NOW. ORDER TO HOLD TONIGHT AND OK FOR PRN ATIVAN AT HS.
--- NOTE | 2018-10-11 21:23 | NUR ---
PT VOIDED 200ML CLEAR, YELLOW URINE ON BEDPAN. GRACIELA-CARE PROVIDED. ADMIN PRN ATIVAN PER PT REQUEST - HOME MED. ALARMS ON AND C/L IN REACH.
--- NOTE | 2018-10-11 23:10 | NUR ---
REASSESSMENT PER FLOWSHEET, NO ACUTE CHANGES. PT RESTING QUIETLY, DENIES NEEDS. PPP. ALARMS ON AND C/L IN REACH.
[2018-10-12] VITALS (13 sets, daily range): BP systolic 129–169; BP diastolic 42–82
--- NOTE | 2018-10-12 01:07 | NUR ---
PT RESTING QUIETLY, VSS.
--- NOTE | 2018-10-12 03:11 | NUR ---
REASSESSMENT PER FLOWSHEET, NO ACUTE CHANGES. PT ASSISTED UP TO BR. GAIT STEADY. R GROIN SITE C/D/I. BACK TO BED. ALARMS ON AND C/L IN REACH.
--- NOTE | 2018-10-12 06:23 | NUR ---
PT UP TO BR, INDEPENDENT WITH AM CARE..
[2018-10-12 07:24] LABS: BASOPHILS 0 % (0-2); EOSINOPHILS 0.5 % (0-7); HEMATOCRIT 35.5 % (36.0-48.0); HEMOGLOBIN 12.1 g/dL (12-16); IMMATURE GRANULOCYTES 0.2 % (0-5); LYMPHOCYTES 10.8 % (15-50); MCH 30.3 pg (26.0-34.0); MCHC 34.1 g/dL (31.0-37.0); MEAN PLATELET VOLUME 10.8 fL (7.4-10.4); MONOCYTES 8.3 % (2-11); NEUTROPHILS 80.2 % (40-80); PLATELET COUNT 255 10x3/uL (130-400); RBC 3.99 10x6/uL (4.00-5.40); RDW 12.7 % (11.5-14.5); WBC 6.6 10x3/uL (4.8-10.8)
[2018-10-12 07:28] LABS: ALBUMIN 3.7 g/dL (3.4-5.0); ANION GAP 15.1 mmol/L (8-16); BILIRUBIN - TOTAL 0.48 mg/dL (0.2-1.3); CALCIUM 9.2 mg/dL (8.5-10.1); CARBON DIOXIDE 24.8 mmol/L (21.0-32.0); MAGNESIUM - SERUM 2.2 mg/dL (1.8-2.4); POTASSIUM - SERUM 3.9 mmol/L (3.5-5.1); PROTEIN - SERUM 7.3 g/dL (6.4-8.2)
[2018-10-12 07:30] LABS: CREATININE - SERUM 1.4 mg/dL (0.6-1.3)
--- NOTE | 2018-10-12 07:35 | NUR ---
JHOANNA FROM GREENHOUSE TECHNICIAN TEAM CAME BY TO ASK TO PRE-OP PT. NO ORDERS IN SYSTEM. PT HAD TOLD NURSE LAST NIGHT THAT SHE DID NOT WANT TO GO BACK TO GREENHOUSE TECHNICIAN TODAY. JOHANNA WENT IN TO TALK TO PATIENT. SHE TOLD HIM SHE WOULD RATHER NOT GO TODAY AND SCHEDULE FOR ANOTHER TIME. HE WILL LET PHYSICIAN KNOW.
--- NOTE | 2018-10-12 08:15 | NUR ---
FAMILY AT BEDSIDE. PT TRYING TO DECIDE IF SHOULD HAVE INTERVENTION TODAY OR WAIT. WILL WAIT TO SPEAK TO DR ORONA THIS MORNING.
--- NOTE | 2018-10-12 09:11 | NUR ---
CONSENT OBTAINED FOR CATH. PRE-OP MEDICATIONS PROVIDED.
--- NOTE | 2018-10-12 09:35 | NUR ---
CALLED BRAKE REPAIRER AIR ABOUT SCHEDULED MEDICATIONS. GIVE PLAVIX AND ASA, HOLD OTHERS.
--- NOTE | 2018-10-12 09:39 | NUR ---
PT OFF UNIT TO SENIOR SOFTWARE DEVELOPMENT MANAGER
--- NOTE | 2018-10-12 10:45 | NUR ---
PT RETURNED TO ROOM. LEFT GROIN DRESSING C,D,I. NO HEMATOMA NOTED. SITE SOFT.
--- NOTE | 2018-10-12 12:15 | NUR ---
2L NC,NO RESP DISTRESS. LEFT GROIN 6F EXOSEAL CDI, NO BLEEDING OR HEMATOMA NOTED. VOIDED 300CC INTO BEDPAN. VSS. FAMILY AT BEDSIDE, CALL LIGHT WITHIN REACH.
[2018-10-12] MEDS ORDERED: PLAVIX75 MG PO (12:16)
--- NOTE | 2018-10-12 12:29 | OP ---
PATIENT NAME: KASSIE MARKHAM MEDICAL RECORD: [id number] :33 [facility] ADMISSION DATE:10/11/18 SURGEON: RAQUEL ORONA MD DATE OF OPERATION: 10/12/2018 PROCEDURES: 1. PTCA stent RCA. 2. PTCA stent LAD diagonal. 3. Selective coronary angiography. INDICATION: Angina and coronary artery disease. PROCEDURE IN DETAIL: After informed consent was obtained and after a detailed description of the risks, benefits as well as alternative therapies, the patient elected to proceed with angiogram and angioplasty. The left femoral area was prepped and draped in normal sterile fashion. Left femoral artery was cannulated via modified Seldinger technique with placement of 6-Cymro sheath. All catheters exchanged through this sheath. FINDINGS: The right coronary artery has multiple areas of 90+ percent stenosis throughout the mid vessel. This was addressed with a 3.0 x 38 and 3.5 x 18 both Elvis stents. Result was 0% residual stenosis. The LAD diagonal is 95% stenosed. This was addressed with a 2.0 x 8 mm [place] stent. Result was 0% residual stenosis. OVERALL IMPRESSION: Successful percutaneous transluminal coronary angioplasty stent of the left anterior descending and right coronary artery, both going from 90% to 95% initial stenosis to 0% residual. TRANSINT:[id number] Voice Confirmation ID: [id number] DOCUMENT ID: [id number] RAQUEL ORONA MD at 1229 CC: [id number] DICTATION DATE: 10/12/18 1031 PATTERN SETTER: 10/12/18 1052 [place] [address]
--- NOTE | 2018-10-12 12:45 | NUR ---
RESTING QUIETLY WITH EYES CLOSED. LEFT GROIN 6F EXOSEAL CDI, NO BLEEDING OR HEMATOMA NOTED. DENIES ANY NEEDS OR C/O AT THIS TIME. VSS. WILL CONTINUE TO MONITOR.
--- NOTE | 2018-10-12 13:00 | NUR ---
RESTING COMFORTABLY WITH NO C/O. LEFT GROIN 6F EXOSEAL CDI, NO BLEEDING OR HEMATOMA NOTED. DENIES ANY NEEDS. VSS. CALL LIGHT WITHIN REACH.
--- NOTE | 2018-10-12 14:00 | NUR ---
HOB ELEVATED 30 DEGREES. LEFT GROIN 6F EXOSEAL CDI, NO BLEEDING OR HEMATOMA NOTED. VSS. WILL CONTINUE TO MONITOR CLOSELY.
--- NOTE | 2018-10-12 14:35 | NUR ---
LEFT PIV D/C'D WITH CATHETER INTACT, BAND AID TO SITE. UP TO BEDSIDE TO GET DRESSED.
--- NOTE | 2018-10-12 14:45 | NUR ---
DISCHARGE INSTRUCTIONS ALONG WITH PLAVIX PRESCRIPTION GIVEN, VERBALIZED UNDERSTANDING.
--- NOTE | 2018-10-12 15:00 | NUR ---
TAKEN OUT VIA WHEELCHAIR BY CATH ORDER PROCESSOR. LEFT FACILITY WITH FAMILY AND ALL PERSONAL BELONGINGS.
--- NOTE | 2018-10-12 17:15 | MORECARE ---
CASE MANAGEMENT DISCHARGE SUMMARY PATIENT: KASSIE MARKHAM UNIT: [id number] ADM DATE: 10/11/18 AGE: 83 : 34 SEX: F ROOM/BED: D[facility] AUTHOR: SHERON BOSCH PHYSICIAN: REFERRING PHYSICIAN: DARCI RIVERO MD DATE OF SERVICE: 10/12/18 Discharge Plan Patient Name: KASSIE MARKHAM Facility: [facility]:[place] : 1935 Planned Disposition: Home Anticipated Discharge Date: Discharge Date: 10/12/2018 Expected LOS: Initial Reviewer: [email or web address] Initial Review Date: 10/12/2018 Generated: 10/12/18 6:14 pm DCPIA - Discharge Planning Initial Assessment Updated by [email or web address]: Halima Maurer on 10/12/18 5:15 pm * Is the patient Alert and Oriented? Yes * How many steps to enter\exit or inside your home? * PCP [facility] * [facility] * Preadmission Environment Home with Family * ADLs Independent * Equipment None * List name and contact numbers for known caregivers / representatives who currently or will assist patient after discharge: AASHISH MARKHAM - [facility]- [phone], * Verbal permission to speak to the caregivers and representatives has been obtained from the patient. No * Community resources currently utilized None * Additional services required to return to the preadmission environment? No * Can the patient safely return to the preadmission environment? Yes * Has this patient been hospitalized within the prior 30 days at any hospital? No Coverage Notice Reviewer: [id number] Demetria Robertson Notice Issued Date-Time: 10/11/2018 10:16 Notice Type: Medicare Outpatient Observation Notice Notice Delivered To: Patient Relationship to Patient: Self Associate Professor Of Counseling Name: Delivery Method: HAND - Hand Delivered Julieth Days: Prior Verbal Notification: Recipient Understood Notice: Yes Recipient Signature: Yes Med Rec Note Co-signed by Attending: Coverage Notice Comment: SPOKE WITH PATIENT AND HER SPOUSE, AASHISH, AFTER VERBAL CONSENT WAS OBTAINED. Last DP export: 10/11/18 9:50 a Patient Name: KASSIE MARKHAM Page [id number] at 1715 All edits/amendments must be made on the electronic document DICTATION DATE: 10/12/181713 INSPECTOR WATCH PARTS: KIM 10/12/181713 RPT#: [id number] DC DATE:10/12/18 STATUS: DIS IN [facility] [address] [place] [place] [address] END OF REPORT
--- NOTE | 2018-10-12 17:28 | MORECARE ---
CASE MANAGEMENT DISCHARGE SUMMARY PATIENT: KASSIE MARKHAM UNIT: [id number] ADM DATE: 10/11/18 AGE: 83 : 34 SEX: F ROOM/BED: D.[facility]01 AUTHOR: HIRO,DOC PHYSICIAN: REFERRING PHYSICIAN: DARCI RIVERO MD DATE OF SERVICE: 10/12/18 Discharge Plan Patient Name: KASSIE MARKHAM Facility: [facility]:[place] : 1935 Planned Disposition: Home Anticipated Discharge Date: Discharge Date: 10/12/2018 Expected LOS: Initial Reviewer: [email or web address] Initial Review Date: 10/12/2018 Generated: 10/12/18 6:28 pm Comments DCP- Discharge Planning Updated by [email or web address]: Halima Muarer on 10/12/18 4:[address] Patient Name: KASSIE MARKHAM Admission Status: ER Accout number: [id number] Admission Date: 10-11-2018 : 1935 Admission Diagnosis: Attending: DARCI RIVERO Current LOS: 1 Anticipated DC Date: Planned Disposition: Home Primary Insurance: [facility] [employer] Discharge Planning Comments: CM met with patient and family at bedside. Patient states she lives at home with her AASHISH. Patient plans to return to her home upon discharge. Patient denies any medical equipment in the home. She also denies any services prior to admission. Patient denies any discharge needs at this time. CM will continue to follow and assist as needed with discharge planning / needs. Advertising Vice President: Halima Maurer DCPIA - Discharge Planning Initial Assessment Updated by [email or web address]: Halima Maurer on 10/12/18 5:15 pm * Is the patient Alert and Oriented? Yes * How many steps to enter\exit or inside your home? * PCP [facility] * [facility] * Preadmission Environment Home with Family * ADLs Independent * Equipment None * List name and contact numbers for known caregivers / representatives who currently or will assist patient after discharge: AASHISH MARKHAM - - [phone], * Verbal permission to speak to the caregivers and representatives has been obtained from the patient. No * Community resources currently utilized None * Additional services required to return to the preadmission environment? No * Can the patient safely return to the preadmission environment? Yes * Has this patient been hospitalized within the prior 30 days at any hospital? No Coverage Notice Reviewer: [email or web address] Demetria Robertson Notice Issued Date-Time: 10/11/2018 10:16 Notice Type: Medicare Outpatient Observation Notice Notice Delivered To: Patient Relationship to Patient: Self Lease Analyst Name: Delivery Method: HAND - Hand Delivered Julieth Days: Prior Verbal Notification: Recipient Understood Notice: Yes Recipient Signature: Yes Med Rec Note Co-signed by Attending: Coverage Notice Comment: SPOKE WITH PATIENT AND HER SPOUSE, TJ, AFTER VERBAL CONSENT WAS OBTAINED. Last DP export: 10/12/18 4:14 p Patient Name: KASSIE MARKHAM Page [id number] at 1728 All edits/amendments must be made on the electronic document DICTATION DATE: 10/12/181726 PIT TANNER: KIM 10/12/181726 RPT#: [id number] DC DATE:10/12/18 STATUS: DIS IN [facility] [address] [place] [address] END OF REPORT
--- NOTE | 2018-10-19 11:18 | DS ---
PATIENT:KASSIE DURÁN :33 MEDICAL RECORD: [id number] DISCHARGE SUMMARY ADMISSION DATE: 10/11/18 DISCHARGE DATE: 10/12/18 DATE OF DISCHARGE: 10/12/2018 DIAGNOSES: 1. Unstable angina. 2. Coronary artery disease. 3. Percutaneous transluminal coronary angioplasty stent left anterior descending, right coronary artery, and left circumflex this admission. 4. Hypertension. 5. Non-Q-wave myocardial infarction. HOSPITAL COURSE: Mrs. Durán presents with unstable anginal symptomatology and a mildly elevated troponin compatible with non-Q-wave myocardial infarction. Underwent cardiac catheterization revealing 3-vessel coronary artery disease, underwent successful PTCA stent of all 3 territories, was discharged home with the addition of aspirin, Plavix, Lopressor, pravastatin to her medical regimen. Follow up with [facility] in 1 month. TRANSINT:[id number] Voice Confirmation ID: [id number] DOCUMENT ID: [id number] RAQUEL ORONA MD at 1118 CC: [id number] DICTATION DATE: 10/12/18 1032 SURGERY TECHNICIAN: 10/13/18 0324 DIS IN 10/12/18 [place] [id number] [place] [address]
== END 2018-10-12 15:00 | disposition home or self-care (01) | DRG 246 ==
LOC: D.ER 17:03 → D.M2 20:27 → D.EDHOLD 20:27 → OBSVTIME 20:35 → D.M2 20:38 → D.CVICU 10-11 14:00 → D.M2 10-11 14:00 → D.CVICU 10-11 16:46 → D.CLR 10-12 12:00
PROVIDERS: Family Medicine; Family Medicine Adult Medicine; Internal Medicine Cardiovascular Disease; Internal Medicine Interventional Cardiology; ADMIT Internal Medicine Nephrology
PROC: 4A023N7 Measurement of Cardiac Sampling and Pressure, Left Heart, Percutaneous Approach (ICD-10-PCS; 2018-10-11)
PROC: B2111ZZ Fluoroscopy of Multiple Coronary Arteries using Low Osmolar Contrast (ICD-10-PCS; 2018-10-11)
PROC: B2151ZZ Fluoroscopy of Left Heart using Low Osmolar Contrast (ICD-10-PCS; 2018-10-11)
PROC: B4181ZZ Fluoroscopy of Bilateral Renal Arteries using Low Osmolar Contrast (ICD-10-PCS; 2018-10-11)
PROC: 027034Z Dilation of Coronary Artery, One Artery with Drug-eluting Intraluminal Device, Percutaneous Approach (ICD-10-PCS; 2018-10-11 10:50)
PROC: 027136Z Dilation of Coronary Artery, Two Arteries with Three Drug-eluting Intraluminal Devices, Percutaneous Approach (ICD-10-PCS; principal; 2018-10-12 09:40)
DX: I21.4 Non-ST elevation (NSTEMI) myocardial infarction (principal); I25.110 Atherosclerotic heart disease of native coronary artery with unstable angina pectoris; I10 Essential (primary) hypertension; F32.9 Major depressive disorder, single episode, unspecified; F41.9 Anxiety disorder, unspecified; I34.0 Nonrheumatic mitral (valve) insufficiency

== ENCOUNTER → 2018-10-26 18:35 | Outpatient (CLI) | payer MEDICARE ==
[2018-10-11 11:05] VITALS: BMI 28.9
[~2018-10-26 18:35] MED LIST changes: +COZAAR100 MG PO; +DILTIAZEM; +HYDROCHLOROTHIA25 MG PO; +NORVASC5 MG PO
[2018-10-26 18:53] LABS: HEMATOCRIT 36.8 % (36.0-48.0); HEMOGLOBIN 12.6 g/dL (12-16)
== END | disposition home or self-care (01) ==
LOC: D.LABREF 18:35
PROVIDERS: ATTEND Internal Medicine Interventional Cardiology
DX: R04.0 Epistaxis (principal); Z79.01 Long term (current) use of anticoagulants; R53.83 Other fatigue

== ENCOUNTER 2018-12-03 12:34 | Emergency (ER) | payer MEDICARE ==
[~2018-12-03] VITALS: Ht 154.9 cm; Wt 67.7 kg
[2018-12-03 12:42] VITALS: Ht 154.9 cm; Wt 67.7 kg
[2018-12-03] MEDS ORDERED: [UNRECOGNIZED DRUG - OTHER] (12:48)
[2018-12-03] MEDS ORDERED: ADALAT CC90 MG PO (13:26)
[2018-12-03] MEDS ORDERED: HYDRALAZINE HCL25 MG PO (13:26)
[2018-12-03 13:43] LABS: HEMATOCRIT 34.1 % (36.0-48.0); HEMOGLOBIN 12.2 g/dL (12-16); LYMPHOCYTES 26.4 % (15-50); MCH 31.1 pg (26.0-34.0); MCHC 35.8 g/dL (31.0-37.0); MEAN PLATELET VOLUME 9.8 fL (7.4-10.4); PLATELET COUNT 252 10x3/uL (130-400); RBC 3.92 10x6/uL (4.00-5.40); RDW 11.9 % (11.5-14.5); WBC 5.8 10x3/uL (4.8-10.8)
[2018-12-03 13:51] LABS: ALBUMIN 3.8 g/dL (3.4-5.0); ALKALINE PHOSPHATASE 116 U/L (46-116); ALT (SGPT) 19 U/L (10-68); BILIRUBIN - TOTAL 0.31 mg/dL (0.2-1.3); CALC OSMOLALITY 284 mosm/kg (275-300); CALCIUM 9.6 mg/dL (8.5-10.1); CARBON DIOXIDE 25.4 mmol/L (21.0-32.0); CHLORIDE - SERUM 103 mmol/L (98-107); CREATININE - SERUM 1.5 mg/dL (0.6-1.3); GLUCOSE 132 mg/dL (74-106); POTASSIUM - SERUM 3.7 mmol/L (3.5-5.1); PROTEIN - SERUM 7.7 g/dL (6.4-8.2); SODIUM 138 mmol/L (136-145); UREA NITROGEN 33 mg/dL (7-18); eGFR NON AFRICAN AMERICAN 35 mL/min (90-120)
[2018-12-03 14:09] LABS: CKMB 0.8 U/L (0.0-3.6); CREATINE KINASE 41 UL (21-215); MAGNESIUM - SERUM 2.3 mg/dL (1.8-2.4); THYROID STIMULATING HORMONE 1.38 uIU/mL (0.36-3.74)
[2018-12-03 14:10] LABS: TROPONIN-I 0.087 ng/mL (0.000-0.060)
[2018-12-03 14:54] LABS: APPEARANCE CLEAR (CLEAR); BILIRUBIN NEGATIVE (NEGATIVE); COLOR STRAW (YELLOW); GLUCOSE NEGATIVE (NEGATIVE); KETONE NEGATIVE (NEGATIVE); NITRITE NEGATIVE (NEGATIVE); PROTEIN NEGATIVE (NEGATIVE); SPECIFIC GRAVITY 1.005 (1.005-1.020); UROBILINOGEN NORMAL (NORMAL)
[2018-12-03 14:55] LABS: BACTERIA FEW /hpf (NONE SEEN); WHITE CELLS - URINE OCC /hpf (0-5)
[2018-12-03 15:05] LABS: APTT 31.4 SECONDS (22.8-39.4); INR 1.02 (0.85-1.17); PROTIME 12.9 SECONDS (11.6-15.0)
[2018-12-03 15:27] VITALS: BP 159/62
== END 2018-12-03 15:28 | disposition home or self-care (01) ==
LOC: D.ER 12:34
PROVIDERS: Emergency Medicine
DX: R74.8 Abnormal levels of other serum enzymes (principal); Z98.890 Other specified postprocedural states

== ENCOUNTER 2019-08-16 11:37 | Emergency (ER) | payer MEDICARE ==
[~2019-08-16] VITALS: Ht 162.6 cm; Wt 68.2 kg
[~2019-08-16 11:37] MED LIST changes: +ADALAT CC90 MG PO; +HYDRALAZINE HCL25 MG PO; +[UNRECOGNIZED DRUG - OTHER]
[2019-08-16 11:38] VITALS: Ht 162.6 cm; Wt 68.2 kg
[2019-08-16 12:04] LABS: BASOPHILS 0.1 % (0-2); EOSINOPHILS 0.4 % (0-7); HEMATOCRIT 38.2 % (36.0-48.0); IMMATURE GRANULOCYTES 0.3 % (0-5); LYMPHOCYTES 1.2 % (15-50); MCH 30.5 pg (26.0-34.0); MCV 89.7 fL (80.0-100.0); MEAN PLATELET VOLUME 10.5 fL (7.4-10.4); MONOCYTES 4.2 % (2-11); NEUTROPHILS 93.8 % (40-80); RBC 4.26 10x6/uL (4.00-5.40); WBC 11.3 10x3/uL (4.8-10.8)
[2019-08-16 12:11] LABS: ANION GAP 16.3 mmol/L (8-16); CALCIUM 8.7 mg/dL (8.5-10.1); CARBON DIOXIDE 23.7 mmol/L (21.0-32.0); CREATININE - SERUM 1.2 mg/dL (0.6-1.3)
[2019-08-16 12:12] LABS: PLATELET COUNT 184 10x3/uL (130-400)
[2019-08-16 12:31] LABS: ALBUMIN 3.6 g/dL (3.4-5.0); BILIRUBIN - TOTAL 0.57 mg/dL (0.2-1.3); PROTEIN - SERUM 7.1 g/dL (6.4-8.2); TROPONIN-I 0.059 ng/mL (0.000-0.060)
[2019-08-16 13:20] LABS: APPEARANCE CLEAR (CLEAR); BILIRUBIN NEGATIVE (NEGATIVE); COLOR YELLOW (YELLOW); GLUCOSE NEGATIVE (NEGATIVE); KETONE NEGATIVE (NEGATIVE); NITRITE NEGATIVE (NEGATIVE); PROTEIN NEGATIVE (NEGATIVE); SPECIFIC GRAVITY 1.015 (1.005-1.020); UROBILINOGEN NORMAL (NORMAL)
[2019-08-16] MEDS ORDERED: CRESTOR5 MG PO (14:26)
[2019-08-16] MEDS ORDERED: HCTZ25 MG PO (14:27)
[2019-08-16] MEDS ORDERED: ZOFRAN ODT4 MG/UDTAB PO (15:19)
[2019-08-16 16:34] VITALS: BP 159/62
== END 2019-08-16 16:36 | disposition home or self-care (01) ==
LOC: D.ER 11:37
PROVIDERS: Family Medicine
DX: A08.4 Viral intestinal infection, unspecified (principal); R11.2 Nausea with vomiting, unspecified; I10 Essential (primary) hypertension; I25.2 Old myocardial infarction